=== PATIENT | male | born 1955 | race Caucasian/White ===

== ENCOUNTER 2024-05-24 09:59 | Day surgery (SDC) | payer MEDICARE, OTHER ==
[2024-05-20 11:49] LABS: BASOPHILS # (AUTO) 0.1 X10'3 (0-0.2); EOSINOPHILS # (AUTO) 0.1 X10'3 (0-0.9); EOSINOPHILS % (AUTO) 2.2 % (0-6); HEMATOCRIT 47.6 % (42.0-52.0); HEMOGLOBIN 16.2 g/dl (14.0-17.9); LYMPHOCYTES # (AUTO) 1.4 X10'3 (1.1-4.8); LYMPHOCYTES % (AUTO) 20.9 % (21-51); MEAN CORPUSCULAR HEMOGLOBIN 30.6 PG (27.0-31.0); MEAN PLATELET VOLUME 8.2 FL (7.4-10.4); MONOCYTES # (AUTO) 0.6 X10'3 (0-0.9); MONOCYTES % (AUTO) 8.4 % (2-12); NEUTROPHILS # (AUTO) 4.5 X10'3 (1.8-7.7); NEUTROPHILS % (AUTO) 67.5 % (42-75); PLATELET COUNT 322 X10'3 (140-440); RED BLOOD COUNT 5.29 X10'6 (4.70-6.10); RED CELL DISTRIBUTION WIDTH 14.3 % (11.5-14.5); WHITE BLOOD COUNT 6.7 X10'3 (4.5-11.0)
[2024-05-20 11:53] LABS: APTT 29 SECONDS (22-32); INR 1.1 INR; PROTHROMBIN TIME 11.1 SECONDS (9.0-12.0)
[2024-05-20 12:04] LABS: ANION GAP 5 (8-16); BLOOD UREA NITROGEN 24 MG/DL (7-18); BUN/CREATININE RATIO 28.6 (10.0-20.0); CALCIUM 9.3 MG/DL (8.5-10.1); CHLORIDE 103 MMOL/L (99-107); CHOL/HDL RATIO 3.2 (0.00-4.99); CHOLESTEROL 190 MG/DL (0-200); CREATININE 0.84 MG/DL (0.60-1.10); GLUCOSE 103 MG/DL (70-104); HDL CHOLESTEROL 59 MG/DL (35-60); LDL CHOLESTEROL 118 MG/DL (50-100); POTASSIUM 4.3 MMOL/L (3.5-5.1); SODIUM 142 MMOL/L (135-145); TOTAL CARBON DIOXIDE 33.6 MMOL/L (24-32); TRIGLYCERIDES 84 MG/DL (20-135); eGFR > 90 ML/MIN
[2024-05-24] VITALS (15 sets, daily range): BP systolic 140–186; BP diastolic 70–126; PULSE 47–78; RESP 8–23; TEMP 97.7; O2SAT 95–100
[~2024-05-24] VITALS: Ht 185.4 cm; Wt 93.0 kg
[2024-05-24] MEDS ORDERED: LISI20TA28 PO (11:06)
[2024-05-24] MEDS ORDERED: APIX5TAB3 PO (11:06)
[2024-05-24] MEDS ORDERED: METO-384 PO (11:06)
[2024-05-24] MEDS ORDERED: HYDR25TA5 PO (11:06)
[2024-05-24] MEDS: normal saline 1000ml 1,000 ML IV SCH (14:00)
[2024-05-24] MEDS: fentaNYL/PF 50MCG/1 ML 2ML syringe IV ONE (14:00)
[2024-05-24] MEDS: MIDAZolam 1mg/ml 10ml vial IV ONE (14:01)
== END 2024-05-24 14:35 | disposition home or self-care (01) ==
LOC: SSTAY O 09:59
PROVIDERS: ATTEND Student in an Organized Health Care Education/Training Program
DX: I48.0 Paroxysmal atrial fibrillation (principal); I48.19 Other persistent atrial fibrillation; I10 Essential (primary) hypertension; E78.00 Pure hypercholesterolemia, unspecified; Z79.899 Other long term (current) drug therapy
CPT/HCPCS: 36415; 80048; 80061; 85025; 85610; 85730; 92960; 93005; J2250; J3010; J7030; Z7610